=== PATIENT | female | born 1980 | race Caucasian/White ===

== ENCOUNTER 2022-11-04 09:10 | Emergency (ER) | payer MEDICAID ==
[~2022-11-04] VITALS: Ht 170.2 cm; Wt 65.0 kg
[2022-11-04 09:13] VITALS: BP 148/83
[2022-11-04] MEDS ORDERED: IBUPROFEN 600MG TABLET PO ONE (10:45)
[2022-11-04] MEDS ORDERED: BACITRACIN ZINC OINT UDPKT TOP ONE (10:45)
[2022-11-04] MEDS ORDERED: IBUP-2029 MT (11:38)
== END 2022-11-04 12:10 | disposition home or self-care (01) ==
LOC: ER 09:10
DX: S60.311A Abrasion of right thumb, initial encounter (principal); R07.89 Other chest pain; Y04.0XXA Assault by unarmed brawl or fight, initial encounter; Y07.499 Other family member, perpetrator of maltreatment and neglect; Y93.89 Activity, other specified; Y92.018 Other place in single-family (private) house as the place of occurrence of the external cause
CPT/HCPCS: 71101; 73130; 99284